=== PATIENT | male | born 1960 | race Caucasian/White ===

== ENCOUNTER → 2020-09-11 10:23 | Outpatient (BNVA) | payer OTHER, SELFPAY | PROVIDERS: Family Provider Internal Medicine; Visit Provider Nurse Practitioner Family | DX: Z11.59 Encounter for screening for other viral diseases (principal) | CPT/HCPCS: 87635 ==

== ENCOUNTER 2021-11-30 00:51 | Emergency (ER) | payer OTHER, SELFPAY ==
[2021-11-30 00:56] VITALS: BP 179/99; PULSE 55; RESP 24; TEMP 36.4; O2SAT 97; BMI 34.1
--- NOTE | 2021-11-30 01:07 | XRR_ITS ---
PROCEDURE INFORMATION: Exam: XR Left Ribs with PA Chest Exam date and time: 11/30/2021 1:07 AM Age: 61 years old Clinical indication: Injury or trauma; Fall; Chest wall and rib area, left side; Blunt trauma; Patient HX: Patient fell this a. M. Slipping on ice and landed onto left side. C/O left chest wall/rib pain with dyspnea. ; Additional info: Fall, injury TECHNIQUE: Imaging protocol: XR Left ribs with PA chest. Views: 3 views COMPARISON: No relevant prior studies available. FINDINGS: Lungs: There are hazy and linear opacities present in lung bases bilaterally likely representing atelectasis. The cortical irregularities seen in the 4th and 5th ribs on the left laterally compatible with acute rib fractures. Pleural spaces: Unremarkable. No pleural effusion. No pneumothorax. Heart/Mediastinum: Unremarkable. No cardiomegaly. Bones/joints: See Lungs finding. XR/XR ribs LT mn 3V w CXR1V [id number] IMPRESSION: 1. Cortical irregularities of the 4th and 5th ribs on the left laterally compatible with acute rib fractures.
--- NOTE | 2021-11-30 01:15 | ED_ITS ---
Documented by User: PRINCE Cardoso 11/30/21 17:14 HPI - Fall General: Chief Complaint: Fall Stated Complaint: FELL Time Seen by Provider: 11/30/21 01:15 History of Present Illness: HPI Narrative: 61-year-old male patient comes in today with complaints of injury to the left anterior rib area. Patient reports he was walking across his yard and slipped and fell landing against the concrete edging of the sidewalk. Patient felt a crack in his rib. Patient has pain with inspiration and movement. Patient appears in moderate pain. Patient appears well. Patient has a history of hypertension. MD complaint: fall Onset (ago): hour(s) Place fall occurred: home Loss of consciousness: None Symptoms prior to fall: none Context: tripped/slipped Location of injury: chest Associated symptoms-after fall: Reports chest pain Review of Systems Card: Reports: chest pain Musc: Reports: other (Lateral left rib pain) [facility] ED PFSH: Family History (Updated 09/11/20 @ 09:41 by Sofie Strickland LPN) Mother Hypertension Lung disease Social History (Updated 09/11/20 @ 09:40 by Sofie Strickland LPN) Smoking and tobacco status: never smoked Alcohol intake: never Physical Exam Const: COMMON NORMALS: alert NUTRITIONAL APPEARANCE: obese HENMT: COMMON NORMALS: normocephalic HEAD & SCALP: normocephalic Neck/C-Spine: COMMON NORMALS: full ROM Chest: CHEST: Yes localized rib tenderness with anteroposterior compression (left lower anterior ) Location: 9th rib and 10th rib Resp: COMMON NORMALS: normal respiratory effort and clear to auscultation bilaterally AUSCULTATION: clear to auscultation bilaterally Extremity: COMMON NORMALS: normal to inspection Neuro: SENSORIUM/ORIENTATION: Yes alert Psych: ATTITUDE: Yes calm Skin: COMMON NORMALS: no rashes or lesions noted GENERAL SKIN EXAM: no rashes or lesions noted Course ED course: 0150, Dr. Miranda look at the x-rays and wanted the patient to be scanned for further evaluation of the rib fractures. Patient was notified and agreed to plan. Vital Signs: Vital signs: Vital Signs Temperature 97.6 F 11/30/21 00:56 Pulse Rate 61 11/30/21 03:11 Respiratory Rate 18 11/30/21 03:11 Blood Pressure 144/101 11/30/21 03:11 Pulse Oximetry 97 11/30/21 03:11 MDM - Fall MDM Narrative: Medical decision making narrative: 61-year-old male patient comes in with left anterior rib pain. Patient slipped and fall on the ice striking the edge of his sidewalk. Patient felt 2 cracks in his ribs. On exam patient has good air movement throughout the lung oden. Patient has tenderness in the anterior ribs. Heart rates regular. Vital signs are okay except for some elevation of blood pressure 179/99. Differential diagnosis includes contusion, fracture, pneumothorax, organ injury. Lab Data: Labs: Lab Results 11/30/21 11/30/21 02:28 02:28 WBC 10.0 10^3/uL 10^3 /uL (4.0-10.0) RBC 4.95 10^6/uL 10^6 /uL (4.1-5.3) Hgb 14.4 g/dL g/dL (11.7-16.6) Hct 44.1 % % (42.0-52.0) MCV 89.1 fl fl (80-94) MCH 29.1 pg pg (28.0-34.0) MCHC 32.7 g/dL g/dL (30.0-36.0) RDW 12.9 % % (12.1-15.1) Plt Count 220 10^3/cmm 10^3 /cmm (130-400) MPV 9.4 fL fL (7.4-10.4) Neut % (Auto) 78.0 % % Lymph % (Auto) 13.5 % % Love % (Auto) 6.6 % % Eos % (Auto) 1.1 % % Baso % (Auto) 0.4 % % Neut # (Auto) 7.76 10^3/uL H 10 ^3/uL (1.8-7.7) Lymph # (Auto) 1.3 10^3/uL 10^3/ uL (0.8-4.8) Love # (Auto) 0.7 10^3/uL 10^3/ uL (0.2-0.9) Eos # (Auto) 0.1 10^3/uL 10^3/ uL (0.0-0.8) Baso # (Auto) 0.0 10^3/uL 10^3/ uL (0.0-0.1) Nucleated RBC % (a uto) 0 % % Nucleated RBCs # 0.0 /100WBC /100W BC Sodium 135 mmol/L L mmol /L (136-145) Potassium 3.8 mmol/L mmol/L (3.5-5.1) Chloride 101 mmol/L mmol/L (98-107) Carbon Dioxide 22 mmol/L mmol/L (22-29) Anion Gap 15.8 (5-19) BUN 25 mg/dL H mg/dL (6-20) Creatinine 1.0 mg/dL mg/dL (0.7-1.2) GFR Calculation 76.5 mL/min L mL/ min (90-130) Glucose 113 mg/dL mg/dL (65-115) Calculated Osmolal ity 285 mOsm/kg mOsm/ kg (285-295) Calcium 8.0 mg/dL L mg/dL (8.5-10.5) Total Bilirubin 0.4 mg/dL mg/dL (0.15-1.2) AST 14 U/L U/L (0-40) ALT 15 U/L U/L (0-41) Alkaline Phosphata se 68 IU/L IU/L (40-130) Total Protein 6.0 g/dL L g/dL (6.6-8.7) Albumin 3.7 g/dL g/dL (3.5-5.2) Globulin 2.3 g/dL g/dL (1.3-4.6) Discharge Plan Discharge Patient Disposition: Home Clinical Impression: Multiple rib fractures Qualifiers: Encounter type: initial encounter Fracture type: closed Laterality: left Qualified Code(s): S22.42XA - Multiple fractures of ribs, left side, initial encounter for closed fracture Condition: Stable Prescriptions: New hydrocodone-acetaminophen 5-325 mg tablet 1 tab PO Q6H PRN (Reason: pain (scale score 7-10)) Qty: 14 RF: 0 ondansetron 4 mg tablet,disintegrating 4 mg PO Q6H PRN (Reason: nausea and vomiting) Qty: 14 RF: 0 No Action lisinopril 10 mg tablet 10 mg PO DAILY RF: 0 Discharge Orders: Discharge ED (Routine); Ordered 11/30/21 Ordered By: Abner Miranda Referrals: Kali Ralph MD [Physician] - 1-3 days Discharge Diet: Usual diet Discharge Activity: Increase activity as tolerated Patient Instructions: Rib Fracture (ED), Opioid Safety Activity Restrictions/Additional Instructions: Drink plenty of water. Use acetaminophen and ibuprofen to control pain. Use hydrocodone for severe pain. Follow-up with primary care for further instruction. Return to the ER for new concerns or worsening symptoms such as high fever greater than 100.4, or increased shortness of breath. Stand Alone Forms: Work/School Release Coding Level of Care Code ED Tool Maker Apprentice for Chg Fwd Exam Comprehensive Documented by User: Abner Miranda MD 11/30/21 03:04 HPI - Fall General: Chief Complaint: Fall Stated Complaint: FELL Time Seen by Provider: 11/30/21 01:15 [facility] ED PFSH: Family History (Updated 09/11/20 @ 09:41 by Sofie Strickland LPN) Mother Hypertension Lung disease Social History (Updated 09/11/20 @ 09:40 by Sofie Strickland LPN) Smoking and tobacco status: never smoked Alcohol intake: never Course Vital Signs: Vital signs: Vital Signs Temperature 97.6 F 11/30/21 00:56 Pulse Rate 61 11/30/21 03:11 Respiratory Rate 18 11/30/21 03:11 Blood Pressure 144/101 11/30/21 03:11 Pulse Oximetry 97 11/30/21 03:11 MDM - Fall MDM Narrative: Medical decision making narrative: Patient presents here with multiple rib fractures from a fall CT shows no signs of any internal injuries did set him up with incentive spirometry showed him how to use it informed him to use it he is to return if he has any increasing shortness of breath patient is take pain meds we'll get him follow-up with Dr. Ralph as well he is return if worsening. Lab Data: Labs: Lab Results 11/30/21 11/30/21 02:28 02:28 WBC 10.0 10^3/uL 10^3 /uL (4.0-10.0) RBC 4.95 10^6/uL 10^6 /uL (4.1-5.3) Hgb 14.4 g/dL g/dL (11.7-16.6) Hct 44.1 % % (42.0-52.0) MCV 89.1 fl fl (80-94) MCH 29.1 pg pg (28.0-34.0) MCHC 32.7 g/dL g/dL (30.0-36.0) RDW 12.9 % % (12.1-15.1) Plt Count 220 10^3/cmm 10^3 /cmm (130-400) MPV 9.4 fL fL (7.4-10.4) Neut % (Auto) 78.0 % % Lymph % (Auto) 13.5 % % Love % (Auto) 6.6 % % Eos % (Auto) 1.1 % % Baso % (Auto) 0.4 % % Neut # (Auto) 7.76 10^3/uL H 10 ^3/uL (1.8-7.7) Lymph # (Auto) 1.3 10^3/uL 10^3/ uL (0.8-4.8) Love # (Auto) 0.7 10^3/uL 10^3/ uL (0.2-0.9) Eos # (Auto) 0.1 10^3/uL 10^3/ uL (0.0-0.8) Baso # (Auto) 0.0 10^3/uL 10^3/ uL (0.0-0.1) Nucleated RBC % (a uto) 0 % % Nucleated RBCs # 0.0 /100WBC /100W BC Sodium 135 mmol/L L mmol /L (136-145) Potassium 3.8 mmol/L mmol/L (3.5-5.1) Chloride 101 mmol/L mmol/L (98-107) Carbon Dioxide 22 mmol/L mmol/L (22-29) Anion Gap 15.8 (5-19) BUN 25 mg/dL H mg/dL (6-20) Creatinine 1.0 mg/dL mg/dL (0.7-1.2) GFR Calculation 76.5 mL/min L mL/ min (90-130) Glucose 113 mg/dL mg/dL (65-115) Calculated Osmolal ity 285 mOsm/kg mOsm/ kg (285-295) Calcium 8.0 mg/dL L mg/dL (8.5-10.5) Total Bilirubin 0.4 mg/dL mg/dL (0.15-1.2) AST 14 U/L U/L (0-40) ALT 15 U/L U/L (0-41) Alkaline Phosphata se 68 IU/L IU/L (40-130) Total Protein 6.0 g/dL L g/dL (6.6-8.7) Albumin 3.7 g/dL g/dL (3.5-5.2) Globulin 2.3 g/dL g/dL (1.3-4.6) Imaging Data^: CT Chest: Radiologist's impression: CT/CT chest abd pel w con* IMPRESSION: 1. Acute fractures of ribs 4-7 on the left. 2. Strandy opacities in the lower hemithoraces likely represents atelectasis. 3. Asymmetric gynecomastia on the right. Discharge Plan Discharge Patient Disposition: Home Clinical Impression: Multiple rib fractures Qualifiers: Encounter type: initial encounter Fracture type: closed Laterality: left Qualified Code(s): S22.42XA - Multiple fractures of ribs, left side, initial encounter for closed fracture Condition: Stable Prescriptions: New hydrocodone-acetaminophen 5-325 mg tablet 1 tab PO Q6H PRN (Reason: pain (scale score 7-10)) Qty: 14 RF: 0 ondansetron 4 mg tablet,disintegrating 4 mg PO Q6H PRN (Reason: nausea and vomiting) Qty: 14 RF: 0 No Action lisinopril 10 mg tablet 10 mg PO DAILY RF: 0 Discharge Orders: Discharge ED (Routine); Ordered 11/30/21 Ordered By: Abner Miranda Referrals: Kali Ralph MD [Physician] - 1-3 days Discharge Diet: Usual diet Discharge Activity: Increase activity as tolerated Patient Instructions: Rib Fracture (ED), Opioid Safety Activity Restrictions/Additional Instructions: Drink plenty of water. Use acetaminophen and ibuprofen to control pain. Use hydrocodone for severe pain. Follow-up with primary care for further instruction. Return to the ER for new concerns or worsening symptoms such as high fever greater than 100.4, or increased shortness of breath. Stand Alone Forms: Work/School Release Coding Level of Care Code ED Tool Maker Apprentice for [employer] Fwd Exam Comprehensive
[2021-11-30] MEDS: HYDROcodone-acetaminophen 7.5-325 mg Tablet 1 TAB PO (01:38)
[2021-11-30 01:43] VITALS: RESP 20
--- NOTE | 2021-11-30 01:47 | CTR_ITS ---
PROCEDURE INFORMATION: Exam: CT Chest With Contrast; Diagnostic Exam date and time: 11/30/2021 1:47 AM Age: 61 years old Clinical indication: Injury or trauma; Fall; Blunt; Patient HX: Patient slipped and fell on sidewalk onto left side. C/O worsening rib pain while in er. Multiple rib fractures noted on xray. TECHNIQUE: Imaging protocol: Diagnostic computed tomography of the chest with contrast. Radiation optimization: All CT scans at this facility use at least one of these dose optimization techniques: automated exposure control; mA and/or kV adjustment per patient size (includes targeted exams where dose is matched to clinical indication); or iterative reconstruction. Contrast material: OMNI 300; Contrast volume: 95 ml; Contrast route: INTRAVENOUS (IV); COMPARISON: CR (CHEST, ) 11/30/2021 1:16 AM RADIATION DOSE METRICS: Total DLP (mGy-cm): 2545.34 FINDINGS: Lungs: Some strandy opacities are present in the lower hemithoraces likely representing atelectasis. Pleural spaces: Unremarkable. No pneumothorax. No pleural effusion. Heart: Unremarkable. No cardiomegaly. No pericardial effusion. Aorta: Unremarkable. No aortic aneurysm. Lymph nodes: Unremarkable. No enlarged lymph nodes. Bones/joints: There are acute fractures of the ribs 4-7 on the left. Soft tissues: There is asymmetric gynecomastia seen on the right. PROCEDURE INFORMATION: Exam: CT Abdomen And Pelvis With Contrast Exam date and time: 11/30/2021 1:47 AM Age: 61 years old Clinical indication: Injury or trauma; Fall; Blunt; Patient HX: Patient slipped and fell on sidewalk onto left side. C/O worsening rib pain while in er. Multiple rib fractures noted on xray. TECHNIQUE: Imaging protocol: Computed tomography of the abdomen and pelvis with contrast. Radiation optimization: All CT scans at this facility use at least one of these dose optimization techniques: automated exposure control; mA and/or kV adjustment per patient size (includes targeted exams where dose is matched to clinical indication); or iterative reconstruction. Contrast material: OMNI 300; Contrast volume: 95 ml; Contrast route: INTRAVENOUS (IV); COMPARISON: CR (CHEST, ) 11/30/2021 1:16 AM RADIATION DOSE METRICS: Total DLP (mGy-cm): 2545.34 FINDINGS: Liver: There are 2 hypoattenuation cystic lesions seen within the right hepatic lobe, the largest seen within the dome of the diaphragm anteriorly measuring 7.6 mm. These likely represent benign cysts. Gallbladder and bile ducts: Normal. No calcified stones. No ductal dilation. Pancreas: Normal. No ductal dilation. Spleen: Normal. No splenomegaly. Adrenal glands: Normal. No mass. Kidneys and ureters: Normal. No hydronephrosis. Stomach and bowel: Unremarkable. No obstruction. No mucosal thickening. Appendix: The appendix is visualized and is normal in configuration. Intraperitoneal space: Unremarkable. No free air. No significant fluid collection. Vasculature: Unremarkable. No abdominal aortic aneurysm. Lymph nodes: Unremarkable. No enlarged lymph nodes. Urinary bladder: Unremarkable as visualized. Reproductive: Unremarkable as visualized. Bones/joints: Unremarkable. No acute fracture. Soft tissues: Unremarkable. CT/CT chest abd pel w con* IMPRESSION: 1. Acute fractures of ribs 4-7 on the left. 2. Strandy opacities in the lower hemithoraces likely represents atelectasis. 3. Asymmetric gynecomastia on the right. IMPRESSION: 1. There are no acute abdominal findings. 2. Two benign-appearing cysts within the right hepatic lobe, the largest measuring 7.6 mm. No further workup needed.
[2021-11-30] MEDS: iohexol 300 mg/mL 100 mL Btl IV (02:19)
[2021-11-30 02:32] LABS: Basophils % 0.4 %; Eosinophils # 0.1 10^3/uL (0.0-0.8); Eosinophils % 1.1 %; Hematocrit 44.1 % (42.0-52.0); Hemoglobin 14.4 g/dL (11.7-16.6); Lymphocytes # 1.3 10^3/uL (0.8-4.8); Lymphocytes % 13.5 %; Mean Corpuscular HGB Conc 32.7 g/dL (30.0-36.0); Mean Corpuscular Hemoglobin 29.1 pg (28.0-34.0); Mean Corpuscular Volume 89.1 fl (80-94); Mean Platelet Volume 9.4 fL (7.4-10.4); Monocytes # 0.7 10^3/uL (0.2-0.9); Monocytes % 6.6 %; Neutrophils # 7.76 10^3/uL (1.8-7.7); Nucleated Red Blood Cells % 0 %; Platelet Count 220 10^3/cmm (130-400); Red Blood Count 4.95 10^6/uL (4.1-5.3); Red Cell Distribution Width 12.9 % (12.1-15.1)
[2021-11-30 02:53] LABS: Alanine Aminotransferase 15 U/L (0-41); Albumin Level 3.7 g/dL (3.5-5.2); Alkaline Phosphatase 68 IU/L (40-130); Anion Gap 15.8 (5-19); Aspartate Amino Transferase 14 U/L (0-40); Blood Urea Nitrogen 25 mg/dL (6-20); Carbon Dioxide 22 mmol/L (22-29); Chloride 101 mmol/L (98-107); Globulin 2.3 g/dL (1.3-4.6); Glomerular Filtration Rate 76.5 mL/min (90-130); Glucose 113 mg/dL (65-115); Osmolality Calculated 285 mOsm/kg (285-295); Potassium 3.8 mmol/L (3.5-5.1); Sodium 135 mmol/L (136-145); Total Bilirubin 0.4 mg/dL (0.15-1.2)
[2021-11-30 03:11] VITALS: BP 144/101; PULSE 61; RESP 18; O2SAT 97
--- NOTE | 2021-12-01 09:43 | DCPLANNER ---
Addendum entered by Valerie Dunham 01/05/22 10:08: Patient had a follow up appointment scheduled with [facility] - appointment was cancelled. Addendum entered by Valerie Dunham 12/15/21 11:01: Patient had a follow up appointment scheduled for 12.08.21 with [facility] - appointment was rescheduled for 12.21.21 with [facility]. Original Note: test manager had message to schedule a follow up appointment with Dr. Ralph at [facility]. test manager called the [facility], spoke with [place], gave clinic patients information. test manager was told that patient has a follow up appointment scheduled for 12.08.21 at 10:[address] Ralph. test manager was told that patient is aware of appointment.
== END 2021-11-30 03:12 | disposition home or self-care (01) ==
PROVIDERS: Emergency Provider Emergency Medicine
DX: S22.42XA Multiple fractures of ribs, left side, initial encounter for closed fracture (principal); W01.198A Fall on same level from slipping, tripping and stumbling with subsequent striking against other object, initial encounter
CPT/HCPCS: 71101; 71260; 74177; 80053; 85025; 99283; Q9967

== ENCOUNTER → 2022-06-15 11:08 | Outpatient (BNVA) | payer OTHER, SELFPAY | PROVIDERS: PCP Family Medicine; Visit Provider Clinical Nurse Specialist Adult Health | DX: R30.0 Dysuria (principal); N39.0 Urinary tract infection, site not specified | CPT/HCPCS: 81000 ==

== ENCOUNTER → 2023-05-01 10:59 | Outpatient (BNVA) | payer OTHER, SELFPAY | PROVIDERS: PCP Family Medicine; Visit Provider Family Medicine | DX: R35.0 Frequency of micturition (principal); C44.91 Basal cell carcinoma of skin, unspecified; Z51.81 Encounter for therapeutic drug level monitoring; Z13.220 Encounter for screening for lipoid disorders | CPT/HCPCS: 80053; 80061; 84153; 85025 ==

== ENCOUNTER → 2024-10-23 08:27 | Outpatient (BNVA) | payer OTHER, SELFPAY | PROVIDERS: PCP Family Medicine; Visit Provider Family Medicine | DX: R35.0 Frequency of micturition; R53.81 Other malaise; R53.83 Other fatigue; Z13.220 Encounter for screening for lipoid disorders; R73.09 Other abnormal glucose; Z51.81 Encounter for therapeutic drug level monitoring; Z79.899 Other long term (current) drug therapy | CPT/HCPCS: 80053; 80061; 83036; 84153; 84439; 84443; 85025 ==

== ENCOUNTER → 2025-10-26 10:07 | Outpatient (BNVA) | payer OTHER, SELFPAY | PROVIDERS: PCP Family Medicine; Visit Provider Family Medicine | DX: Z00.00 Encounter for general adult medical examination without abnormal findings (principal); Z51.81 Encounter for therapeutic drug level monitoring; Z13.6 Encounter for screening for cardiovascular disorders; R35.0 Frequency of micturition | CPT/HCPCS: 80053; 80061; 84153; 85025 ==